=== PATIENT | male | born 1960 | race African-American/Black ===

== ENCOUNTER 2017-11-02 16:38 | Emergency (ER) | payer OTHER ==
[~2017-11-02] VITALS: Ht 172.7 cm; Wt 79.5 kg
[2017-11-02 16:46] VITALS: BP 138/78; Ht 172.7 cm; Wt 79.5 kg
[2017-11-02] MEDS ORDERED: LEXAPRO20 MG PO (16:51)
[2017-11-02] MEDS ORDERED: HYDROCODONE-APA1 TAB PO (16:51)
[2017-11-03] MEDS ORDERED: FLECTOR1 PATCH TRANSDERM (11:56)
[2017-11-03] MEDS ORDERED: EC-NAPROSYN500 MG PO (13:50)
[2017-11-03] MEDS ORDERED: VALIUM 2 MG TAB2 MG PO (13:50)
== END 2017-11-02 17:59 | disposition home or self-care (01) ==
LOC: D.ER 16:38
DX: Z76.5 Malingerer [conscious simulation] (principal); M54.5 Low back pain; M25.551 Pain in right hip; M79.604 Pain in right leg; F17.200 Nicotine dependence, unspecified, uncomplicated

== ENCOUNTER 2017-11-03 11:31 | Emergency (ER) | payer OTHER ==
[~2017-11-03] VITALS: Ht 172.7 cm; Wt 79.5 kg
[~2017-11-03 11:31] MED LIST: HYDROCODONE-APA1 TAB PO; LEXAPRO20 MG PO
[2017-11-03 11:55] VITALS: Ht 172.7 cm; Wt 79.5 kg
[2017-11-03] MEDS ORDERED: FLECTOR1 PATCH TRANSDERM (11:56)
[2017-11-03] MEDS ORDERED: VALIUM 2 MG TAB2 MG PO (13:50)
[2017-11-03] MEDS ORDERED: EC-NAPROSYN500 MG PO (13:50)
[2017-11-03 14:04] VITALS: BP 121/70
== END 2017-11-03 14:05 | disposition home or self-care (01) ==
LOC: D.ER 11:31
DX: M54.5 Low back pain (principal); M62.830 Muscle spasm of back; F17.200 Nicotine dependence, unspecified, uncomplicated